=== PATIENT | male | born 1950 | race Asian ===

== ENCOUNTER 2017-12-20 06:36 | Day surgery (SDC) | payer OTHER ==
[~2017-12-20] VITALS: Ht 170.2 cm; Wt 63.5 kg
[2017-12-20] MEDS ORDERED: OMEP20TC12 PO (07:53)
[2017-12-20] MEDS ORDERED: ATOR20TA PO (07:53)
[2017-12-20] MEDS ORDERED: METO25TA14 PO (07:53)
[2017-12-20] MEDS ORDERED: GLU500 PO (07:53)
[2017-12-20] MEDS ORDERED: LOSA100T25 PO (07:53)
[2017-12-20] MEDS ORDERED: ASPI-1677 PO (07:53)
[2017-12-20] MEDS ORDERED: fentaNYL 0.05 MG/ML VIAL ONE (08:04)
[2017-12-20] MEDS ORDERED: MIDAZOLAM 2 MG/2 ML VIAL ONE ×2 (08:05)
[2017-12-20] MEDS ORDERED: MIDAZOLAM 2 MG/2 ML VIAL IVP ONE (08:50)
== END 2017-12-20 09:10 | disposition home or self-care (01) ==
LOC: MDS 06:36 → MMU 06:51 → MDS 09:10
PROVIDERS: ATTEND Internal Medicine Gastroenterology
DX: K31.7 Polyp of stomach and duodenum (principal); K21.9 Gastro-esophageal reflux disease without esophagitis; I10 Essential (primary) hypertension; E11.9 Type 2 diabetes mellitus without complications; Z98.890 Other specified postprocedural states; Z72.89 Other problems related to lifestyle; Z87.891 Personal history of nicotine dependence; Z79.899 Other long term (current) drug therapy; Z79.84 Long term (current) use of oral hypoglycemic drugs; Z68.22 Body mass index [BMI] 22.0-22.9, adult
CPT/HCPCS: 43239; 82948; J2250; J3010